=== PATIENT | male | born 2000 | race Caucasian/White ===

== ENCOUNTER 2022-10-24 19:38 | Emergency (ER) | payer OTHER, BC, SELFPAY ==
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
[2022-10-24 20:09] VITALS: BP 154/99; PULSE 93; RESP 18; TEMP 36.9; O2SAT 97; BMI 26.4
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
--- NOTE | 2022-10-24 20:33 | PC.NURSE ---
patient in the process of being discharged patient is aware
== END 2022-10-24 20:39 | disposition home or self-care (01) ==
PROVIDERS: Emergency Provider Registered Nurse Emergency; PCP Nurse Practitioner Family
DX: S46.912A Strain of unspecified muscle, fascia and tendon at shoulder and upper arm level, left arm, initial encounter (principal); S80.12XA Contusion of left lower leg, initial encounter; S80.11XA Contusion of right lower leg, initial encounter; V44.5XXA Car driver injured in collision with heavy transport vehicle or bus in traffic accident, initial encounter; Y93.9 Activity, unspecified; Y92.410 Unspecified street and highway as the place of occurrence of the external cause; Y99.9 Unspecified external cause status
CPT/HCPCS: 99282; 99283

== ENCOUNTER 2023-05-24 14:25 | Emergency (ER) | payer BC, SELFPAY ==
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
[2023-05-24 14:52] VITALS: BP 142/102; BP 171/105; PULSE 106; PULSE 84; RESP 16; TEMP 36.6; O2SAT 98; BMI 21.5
[2023-05-24] MEDS: clonazePAM 1 MG TABLET PO ×2 (15:22→18:32)
[2023-05-24] MEDS: Nicotine Polacrilex 2 MG GUM BUCCAL ×2 (15:22→20:10)
[2023-05-24 15:51] LABS: MANUAL DIFF FLAG NO
[2023-05-24 15:55] LABS: Basophils Absolute Auto 0.1 X10*3/uL (0.0-0.2); Basophils Percent Auto 2.3 % (0-2); Eosinophils Absolute Auto 0.1 X10*3/uL (0.0-0.4); Hematocrit 43.9 % (42.0-52.0); Hemoglobin 16.2 g/dl (14.0-18.0); Imm Gran Abs Auto 0.01 X10*3/uL (0.00-0.03); Imm Gran Pct Auto 0.3 % (0.0-0.4); Lymphocytes Absolute Auto 1.6 X10*3/uL (1.2-4.9); Lymphocytes Percent Auto 45.5 % (20-40); Mean Corpuscular HGB Conc 36.9 g/dl (31.0-36.0); Mean Corpuscular Hemoglobin 33.8 pg (27.0-33.0); Mean Corpuscular Volume 91.6 fL (80.0-98.0); Mean Platelet Volume 10.1 fL (9.4-12.4); Monocytes Absolute Auto 0.3 X10*3/uL (0.1-1.2); Monocytes Percent Auto 9.7 % (2-11); Neutrophils Absolute Auto 1.4 x10*3/uL (2.0-8.3); Neutrophils Percent Auto 40.2 % (45-73); Platelet Count 215 X10*3/uL (160-400); Red Blood Count 4.79 X10*6/uL (4.60-5.80); Red Cell Distribution Width 12.7 % (11.0-16.0); White Blood Count 3.5 X10*3/uL (4.8-10.8)
[2023-05-24 15:55] LABS: Appearance Urine Clear; Color Urine Yellow; Glucose Urine UA Negative (Negative); Leukocyte Esterase Urine Negative (Negative); Nitrite Urine Negative (Negative); PH 7.5 (5.0-9.0); Specific Gravity - Urine <= 1.005 (1.005-1.025); Urine Blood Negative (Negative); Urine Ketones Negative (Negative); Urine Protein Negative (Neg-Trace)
[2023-05-24 16:02] LABS: Amphetamine Screen Urine Not Detected (Not Detect); Barbiturates, Urine Not Detected (Not Detect); Benzodiazepines Screen Urine Not Detected (Not Detect); Cannabinoid Screen Urine POSITIVE (Not Detect); Cocaine Screen Urine Not Detected (Not Detect); Fentanyl, urine Not Detected (Not Detect); Opiate Screen Urine Not Detected (Not Detect); Phencyclidine Screen Urine Not Detected (Not Detect)
[2023-05-24 16:03] LABS: COVID-19 Test Negative (Negative); IDNOW Serial# 152EDE1D
[2023-05-24 16:04] LABS: Anion Gap 18 (12-20); Blood Urea Nitrogen 6 mg/dL (9-16); Carbon Dioxide 21 mmol/L (22-29); Chloride 105 mmol/L (96-108); Creatinine Clr Calc Pharmacy 156.5; Estimated Glomerular Filt Rate > 60; Ethanol 328 mg/dL; Glucose Random 105 mg/dL (60-115); Potassium 3.4 mmol/L (3.3-5.1); Sodium 141 mmol/L (135-145)
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
--- NOTE | 2023-05-24 17:29 | PC.NURSE ---
pt requesting to leave, this RN educated him that he is still intoxicated and therefore cannot leave. Pt requesting something to sign to refuse treatment . Once again this RN educated patient that he cannot do that at this time and we need to let him sober up
[2023-05-24 17:57] VITALS: RESP 16
[2023-05-24] MEDS: Nicotine 21 MG PATCH.TD24 TRANSDERMA (18:32)
--- NOTE | 2023-05-24 18:47 | PC.NURSE ---
Pt is starting to get increasingly agitated, requesting to leave. This RN reiterated to the patient that he cannot leave until evaluated by CARE team and that cannot occur until patient is medically sober. Pt grimacing, appearing visibly upset. Pt walked away without speaking to this RN. CODING COORDINATOR aware
[2023-05-24] MEDS: Gabapentin 300 MG CAPSULE PO (19:57)
[2023-05-24] MEDS: Zolpidem Tartrate 5 MG TABLET PO (19:57)
--- NOTE | 2023-05-24 20:01 | PC.NURSE ---
Patient requesting nicotine gum on top of the patch for nicotine cravings. CARLOS Ahmadi aware, no new orders. Per PULVERIZER, patient cannot have gum and patch at the same time
[2023-05-24] MEDS: LORazepam 1 MG TABLET 2 MG PO (20:35)
[2023-05-24 20:36] VITALS: BP 137/100; PULSE 95; RESP 20; TEMP 36.6; O2SAT 98
--- NOTE | 2023-05-25 00:13 | PC.NURSE ---
PT RUBY 7. notified CARLOS Ahmadi. No new orders at this time.
[2023-05-25] MEDS: LORazepam 1 MG TABLET PO (00:39)
[2023-05-25] MEDS: Nicotine Polacrilex 2 MG GUM BUCCAL ×2 (03:54→09:40)
[2023-05-25 04:07] VITALS: BP 156/96; PULSE 99; RESP 18; TEMP 36.7; O2SAT 98
[2023-05-25 05:57] VITALS: BP 162/92; PULSE 112; RESP 18; TEMP 36.4; O2SAT 99
[2023-05-25] MEDS: LORazepam 1 MG TABLET 2 MG PO (06:11)
--- NOTE | 2023-05-25 06:34 | PC.NURSE ---
Pt DERKE 14. notified Dr Lafleur. Adminsitered medications as per JUN. PT resting quietly at this time. In no acute distress at this time. Plan of care ongoing.
[2023-05-25] MEDS: Gabapentin 300 MG CAPSULE PO (08:23)
[2023-05-25] MEDS: clonazePAM 1 MG TABLET PO (08:24)
== END 2023-05-25 10:18 | disposition home or self-care (01) ==
PROVIDERS: Registered Nurse Emergency; Emergency Provider Emergency Medicine Emergency Medical Services
DX: F41.9 Anxiety disorder, unspecified (principal); R45.851 Suicidal ideations; Z11.52 Encounter for screening for COVID-19
CPT/HCPCS: 80048; 80307; 81003; 85025; 87635; 99285; S9485

== ENCOUNTER 2024-01-27 01:30 | Emergency (ER) | payer BC, SELFPAY ==
--- NOTE | 2024-01-27 | ECG_ITS ---
Test Reason : DETOX Blood Pressure : / mmHG Vent. Rate : 105 BPM Atrial Rate : 105 BPM P-R Int : 158 ms QRS Dur : 088 ms QT Int : 324 ms P-R-T Axes : 077 060 067 degrees QTc Int : 428 ms Sinus tachycardia Low voltage QRS Borderline ECG No previous ECGs available Referred By: Generic ED Physician Electronically Signed By:JUNO KUMAR
[2024-01-27 01:38] VITALS: BP 137/101; PULSE 130; RESP 22; TEMP 36.1; O2SAT 98; BMI 26.7
[2024-01-27 03:01] LABS: Basophils Absolute Auto 0.1 X10*3/uL (0.0-0.2); Basophils Percent Auto 1.6 % (0-2); Eosinophils Percent Auto 0.5 % (0-4); Hematocrit 46.1 % (42.0-52.0); Hemoglobin 17.3 g/dl (14.0-18.0); Imm Gran Abs Auto 0.01 X10*3/uL (0.00-0.03); Imm Gran Pct Auto 0.2 % (0.0-0.4); Lymphocytes Percent Auto 35.4 % (20-40); MANUAL DIFF FLAG NO; Mean Corpuscular HGB Conc 37.5 g/dl (31.0-36.0); Mean Corpuscular Hemoglobin 34.7 pg (27.0-33.0); Mean Corpuscular Volume 92.4 fL (80.0-98.0); Monocytes Absolute Auto 0.6 X10*3/uL (0.1-1.2); Monocytes Percent Auto 10.9 % (2-11); Neutrophils Absolute Auto 2.9 x10*3/uL (2.0-8.3); Neutrophils Percent Auto 51.4 % (45-73); Platelet Count 270 X10*3/uL (160-400); Red Blood Count 4.99 X10*6/uL (4.60-5.80); Red Cell Distribution Width 13.2 % (11.0-16.0); White Blood Count 5.6 X10*3/uL (4.8-10.8)
[2024-01-27 03:03] LABS: Appearance Urine Clear; Color Urine Yellow; Glucose Urine UA Negative (Negative); Leukocyte Esterase Urine Negative (Negative); Nitrite Urine Negative (Negative); UMIC TRIGGER UACC YES; Urine Blood Negative (Negative); Urine Ketones Trace mg/dL (Negative); Urine Protein 30 (1+) mg/dL (Neg-Trace)
[2024-01-27 03:07] LABS: Bacteria Urine None Seen (None Seen); Hyaline Casts Urine 0-2 /LPF (0-2); RBC Urine 0-2 /HPF (0-2); Squamous Epithelial Cell Urine 0-2 /HPF (0-2); WBC Urine 0-5 /HPF (0-5)
[2024-01-27 03:13] LABS: Amphetamine Screen Urine Not Detected (Not Detect); Barbiturates, Urine Not Detected (Not Detect); Benzodiazepines Screen Urine POSITIVE (Not Detect); Buprenorphine Scr Not Detected (Not Detect); Cannabinoid Screen Urine POSITIVE (Not Detect); Cocaine Screen Urine Not Detected (Not Detect); Fentanyl, urine Not Detected (Not Detect); Methadone Screen, Urine Not Detected (Not Detect); Opiate Screen Urine Not Detected (Not Detect); Oxycodone Screen Urine Not Detected (Not Detect); Phencyclidine Screen Urine Not Detected (Not Detect)
[2024-01-27 03:14] VITALS: BP 140/90; PULSE 104; RESP 20
--- NOTE | 2024-01-27 03:15 | PC.NURSE ---
pt changed over by tech and security, belongings placed in [facility] locker. medications counted and inventoried by this RN and second RN claudia
[2024-01-27 03:17] LABS: Alanine Aminotransferase 111 U/L (0-40); Albumin Level 4.6 g/dL (3.5-5.0); Alkaline Phosphatase 104 U/L (39-117); Anion Gap 21 (12-20); Aspartate Amino Transferase 189 U/L (5-37); Bilirubin Total 1.7 mg/dL (0.0-1.0); Blood Urea Nitrogen 5 mg/dL (9-16); Calcium 9.4 mg/dL (8.4-10.2); Carbon Dioxide 23 mmol/L (22-29); Chloride 101 mmol/L (96-108); Creatinine Clr Calc Pharmacy 144.2; Estimated Glomerular Filt Rate > 60; Ethanol 212 mg/dL; Glucose Random 108 mg/dL (60-115); Magnesium 1.5 mg/dL (1.6-2.6); Potassium 3.2 mmol/L (3.3-5.1); Sodium 142 mmol/L (135-145); Total Protein 7.8 g/dL (6.5-8.0)
[2024-01-27 03:23] LABS: Troponin-I High Sensitivity < 2.7 ng/L (<3.5-35.0)
--- NOTE | 2024-01-27 05:05 | ED_ITS ---
HPI - General Adult General Chief complaint: General Medical Stated complaint: Seeking Detox Time Seen by Provider: 01/27/24 05:00 Source: patient Mode of arrival: ambulatory Limitations: no limitations History of Present Illness ED Provider: Dr. Vanessa Nieves HPI narrative: Patient comes to the emergency room , requesting detox for alcohol abuse. Patient states that he drinks heavily, 4-5 shots before he got here. Patient denies SI or HI. Related Data Home Medications ?Medication ?Instructions ?Recorded ?Confirmed clonazepam 1 mg tablet 1 mg PO DAILY PRN Anxiety 05/24/23 05/24/23 gabapentin 300 mg capsule 300 mg PO TID 05/24/23 05/24/23 zolpidem 12.5 mg tablet,extended 12.5 mg PO DAILY 05/24/23 05/24/23 release,multiphase Allergies Allergy/AdvReac Type Severity Reaction Status Date / Time Penicillins Allergy hives Verified 01/27/24 01:44 quetiapine [From Seroquel] Allergy Involuntary Verified 01/27/24 01:44 Spasms amoxicillin Allergy hives Uncoded 05/24/23 17:09 risperdal Allergy hives Uncoded 05/24/23 17:09 Melatonin AdvReac Intermediate Nightmare Uncoded 05/24/23 23:01 Review of Systems 2 Review of Systems: Constitutional : No Weight loss, No Fever, No Chills, No Night Sweats, No Fatigue, No Malaise ENT/Mouth : No Hearing loss, No Ear Pain, No Nasal Congestion, No Sinus Pain, No Hoarseness, No sore throat, No Rhinorrhea, No Swallowing Difficulty Eyes: No Eye Pain, No Swelling, No Redness, No Foreign Body, No Discharge, No Vision Changes Cardiovascular : No Chest Pain, No SOB, No Dyspnea on Exertion, No Orthopnea, No Edema, No Palpitations Respiratory : No Cough, No Sputum, No Wheezing, No Smoke Exposure, No Dyspnea Gastrointestinal : No Nausea, No Vomiting, No Diarrhea, No Constipation, No abdominal Pain, No Hematochezia, No Melena Genitourinary : no irregular bleeding, No Dysuria, No Urinary Frequency, No Hematuria, No Urinary Incontinence, No Urgency, No Flank Pain, No Urinary Flow Changes, No Hesitancy Musculoskeletal : No joint pain, No Myalgias, No Joint Swelling Skin : No Skin Lesions, No rash Neuro : No Weakness, No Numbness, No Paresthesias, No Loss of Consciousness, No Dizziness, No Headache Psych : No Anxiety/Panic, No Depression, No SI/HI/AH/VH, admits to alcohol abuse, requesting detox Heme/Lymph: No Bruising, No Bleeding,No Lymphadenopathy Endocrine : No Polyuria, No Polydipsia, No Temperature Intolerance [facility] Past Medical History Medical History (Updated 01/27/24 @ 05:10 by Vanessa Nieves MD) Alcohol abuse Alcohol dependence Social History Social History Alcohol intake: current Alcohol intake frequency: a few times a week Alcohol type: hard liquor Substance Use Type: Marijuana Advance Directives: No Advance Directives Information Provided: Yes Do you have a plan to hurt others: No Plan Physical Exam ED Vital Signs: Vital Signs - 24 hr 01/27/24 01:38 01/27/24 03:14 Temperature 97 F Pulse Rate 130 H 104 H Respiratory Rate 22 H 20 Blood Pressure 137/101 H 140/90 H Pulse Oximetry 98 Oxygen Delivery Method Room Air BMI result Body Mass Index 26.7 Const Other: Appearance: Alert. Oriented X3. Somnolent but easily arousable Eyes: Pupils equal, round and reactive to light. ENT: Pharynx normal. Neck: Normal inspection. Neck supple. No lymph nodes noted. No crepitus CVS: Normal heart rate and rhythm. Pulses normal. Normal S1 and S2 Respiratory: No respiratory distress. Breath sounds normal. No Wheezing. No rales Abdomen: Soft and nontender. No rigidity. No distention. Skin: Skin warm and dry. Normal skin color. Normal skin turgor. Extremities: No lower extremity edema. No Lacerations. No Rash Neuro No motor deficit. No sensory deficit. Moving all extremities. No slurred speech. CN 2 through 12 grossly intact Psych: calm, cooperative, normal affect Medical Decision Making Medical Decision Making MDM Narrative: My interpretation of labs: At baseline hematology, potassium 3.2, normal is 3.3. Magnesium 1.5, LFTs slightly elevated secondary to alcohol abuse, troponin negative. Urinalysis positive for benzodiazepines and marijuana, ETOH level 212 -potassium and magnesium were repleted p.o. -care team consult pending Patient denies SI or HI, section 12 is not indicated -physician observation started at 05:00 Differential Diagnosis Differential Diagnoses: The differential diagnosis associated with the presentation includes (Alcohol abuse, polysubstance abuse, depression) Admission/Observation Consideration of admission/observation: Escalation of care including admission/observation considered (Patient is under physician observation waiting to see by the care team/addiction medicine) Lab Data MDM Lab Attestation statement: I reviewed the patient's lab results. 01/27/24 02:54 01/27/24 02:50 Labs: Lab Results 01/27/24 01/27/24 Range/Units 02:50 02:54 WBC 5.6 (4.8-10.8) X10*3/uL RBC 4.99 (4.60-5.80) X10*6/uL Hgb 17.3 (14.0-18.0) g/dl Hct 46.1 (42.0-52.0) % MCV 92.4 (80.0-98.0) fL MCH 34.7 H (27.0-33.0) pg MCHC 37.5 H (31.0-36.0) g/dl RDW 13.2 (11.0-16.0) % Plt Count 270 D (160-400) X10*3/uL MPV 10.0 (9.4-12.4) fL Immature Gran % (Auto) 0.2 (0.0-0.4) % Neut % (Auto) 51.4 (45-73) % Lymph % (Auto) 35.4 (20-40) % [place] % (Auto) 10.9 (2-11) % Eos % (Auto) 0.5 (0-4) % Baso % (Auto) 1.6 (0-2) % Lymph # (Auto) 2.0 (1.2-4.9) X10*3/uL [place] # (Auto) 0.6 (0.1-1.2) X10*3/uL Eos # (Auto) 0.0 (0.0-0.4) X10*3/uL Baso # (Auto) 0.1 (0.0-0.2) X10*3/uL Abs Immat Gran (auto) 0.01 (0.00-0.03) X10*3/uL Absolute Neuts (auto) 2.9 (2.0-8.3) x10*3/uL Absolute Nucleated RBC 0.000 (0.0-0.012) X10*3/uL Nucleated RBC % (auto) 0.0 (0.0-0.2) /100WBC Sodium 142 (135-145) mmol/L Potassium 3.2 L (3.3-5.1) mmol/L Chloride 101 (96-108) mmol/L Carbon Dioxide 23 (22-29) mmol/L Anion Gap 21 H (12-20) BUN 5 L (9-16) mg/dL Creatinine 0.91 (0.5-1.4) mg/dL Estim Creat Clear Calc 144.2 Estimated GFR > 60 Random Glucose 108 (60-115) mg/dL Calcium 9.4 (8.4-10.2) mg/dL Magnesium 1.5 L (1.6-2.6) mg/dL Total Bilirubin 1.7 H (0.0-1.0) mg/dL AST 189 H (5-37) U/L ALT 111 H (0-40) U/L Alkaline Phosphatase 104 (39-117) U/L Troponin I High Sens < 2.7 (<3.5-35.0) ng/L Total Protein 7.8 (6.5-8.0) g/dL Albumin 4.6 (3.5-5.0) g/dL Urine Color Yellow Urine Appearance Clear Urine pH 6.0 (5.0-9.0) Ur Specific [place] 1.010 (1.005-1.025) Urine Protein 30 (1+) H (Neg-Trace) mg/dL Urine Glucose (UA) Negative (Negative) mg/dL Urine Ketones Trace (Negative) mg/dL Urine Blood Negative (Negative) Urine Nitrite Negative (Negative) Ur Leukocyte Esterase Negative (Negative) Urine RBC 0-2 (0-2) /HPF Urine WBC 0-5 (0-5) /HPF Ur Squamous Epith Cells 0-2 (0-2) /HPF Urine Bacteria None Seen (None Seen) Hyaline Casts 0-2 (0-2) /LPF Urine Opiates Screen Not Detected (Not Detect) Ur Buprenorphine Scrn Not Detected (Not Detect) ng/mL Ur Oxycodone Screen Not Detected (Not Detect) ng/mL Urine Methadone Screen Not Detected (Not Detect) ng/mL Urine Fentanyl Screen Not Detected (Not Detect) Ur Barbiturates Screen Not Detected (Not Detect) Ur Phencyclidine Scrn Not Detected (Not Detect) Ur Amphetamines Screen Not Detected (Not Detect) U Benzodiazepines Scrn POSITIVE H (Not Detect) Urine Cocaine Screen Not Detected (Not Detect) U Marijuana (THC) Screen POSITIVE H (Not Detect) Ethyl Alcohol 212 mg/dL Critical Care Time Critical Care Time Critical Care Time: Yes Total Critical Care Time: 30 Attestation: I have personally provided critical care time. Time includes review of lab data, radiology results, discussion with consultants, and monitoring for potential decompensation. Intervention performed as documented. Discharge Plan Discharge Clinical Impression: Alcohol dependence Patient Disposition: Still a Patient Prescriptions: No Action clonazepam 1 mg tablet 1 mg PO DAILY PRN (Reason: Anxiety) zolpidem 12.5 mg tablet,ext release multiphase 12.5 mg PO DAILY gabapentin 300 mg capsule 300 mg PO TID Print Language: Slovenian
[2024-01-27] MEDS: Magnesium Oxide 400 MG TABLET 800 MG PO (06:13)
[2024-01-27] MEDS: Potassium Chloride ER 20 MEQ TAB.ER.PRT PO (06:14)
[2024-01-27 06:15] VITALS: BP 138/94; PULSE 100; RESP 20; TEMP 36.7; O2SAT 98
[2024-01-27] MEDS: LORazepam 1 MG TABLET 2 MG PO (09:13)
[2024-01-27 09:15] VITALS: BP 134/97; PULSE 122; RESP 18; O2SAT 97
--- NOTE | 2024-01-27 09:16 | PC.NURSE ---
Pt had been sleeping since this RN arrival. Skin pwd. ST on monitor once awake in 120's. clear speech. reports hx of withdrawsal sx. made aware and ivonne price.
--- NOTE | 2024-01-27 09:42 | MHC.RECOVRN ---
Met with pt in ED19, along with pipe recovery specialist Jacoby, after pt expressed interest in ATS. Pt sitting in bed, awake, alert, easily engages in conversation. Pt reports alcohol use, 2 pints 100 proof vodka daily x 2 years. Pt reports prior to 2 years ago he was buying bigger bottles but switched to pints in an attempt to drink less. Pt reports he has been drinking alcohol for 10 years without significant periods of recovery. Pt denies hx ATS for alcohol use, reports he had received treatment for OUD prior to the pandemic and has not used opioids since then. Pt reports hx withdrawal seizures. Reports family hx AUD. Pt is interested in ATS, would like to stay as close to home as possible. [facility] spoke with [facility] and they have bed availability, plan for referral to be faxed.
--- NOTE | 2024-01-27 11:05 | MHC.RECOVRN ---
Pt accepted to [facility] for approx 1PM admission time. Will be transported via [employer]. RN and provider aware.
== END 2024-01-27 12:18 | disposition other institution (70) ==
PROVIDERS: Emergency Medicine; Emergency Provider Emergency Medicine Emergency Medical Services
DX: F10.229 Alcohol dependence with intoxication, unspecified (principal); R00.0 Tachycardia, unspecified; Y90.7 Blood alcohol level of 200-239 mg/100 ml; Z51.81 Encounter for therapeutic drug level monitoring; Z79.899 Other long term (current) drug therapy
CPT/HCPCS: 36415; 80053; 80307; 81001; 83735; 84484; 85025; 93005; 99284

== ENCOUNTER → 2024-01-27 01:46 | Outpatient (BNV) | payer BC, SELFPAY | PROVIDERS: Emergency Provider Emergency Medicine Emergency Medical Services; Visit Provider Internal Medicine | DX: R00.0 Tachycardia, unspecified (principal) | CPT/HCPCS: 93010 ==